=== PATIENT | female | born 1990 | race Caucasian/White ===

== ENCOUNTER 2018-06-06 16:57 | Emergency (ER) | payer OTHER ==
[~2018-06-06] VITALS: Ht 154.9 cm; Wt 60.1 kg
[~2018-06-06 16:57] MED LIST: ADDERALL10 MG PO; ADDERALL15 MG PO; AMBIEN5 MG PO; BENTYL20 MG PO; DEPO PROVERA; IBUPROFEN800 MG PO; NAPROXEN500 MG PO; ORTHO CYCLEN1 TABLET PO; ORTHO TRI-CYCL1 EACH PO; PEN-VEE K,VEET500 MG PO; PERCOCET 5/31 TABLET PO; ULTRAM50 MG PO; ZANTAC150 MG PO; ZOFRAN ODT8 MG PO
[2018-06-06 17:56] LABS: APPEARANCE CLOUDY ((CLEAR)); BILIRUBIN NEGATIVE; BLOOD SMALL; COLOR YELLOW ((YELLOW)); GLUCOSE (STRIP) NEGATIVE; KETONES NEGATIVE; LEUKOCYTES LARGE; NITRITE NEGATIVE; PROTEIN (STRIP) 30; SPECIFIC GRAVITY 1.016 (1.000-1.030); UROBILINOGEN 0.2 MG/DL (0.2-1.0)
[2018-06-06 19:06] LABS: BACTERIA 1+ /HPF; EPITHELIAL CELLS 2+ /HPF; MUCUS 1+ /LPF; RED BLOOD CELLS RARE /HPF (0-5); WHITE BLOOD CELLS 20-30 /HPF (0-5)
[2018-06-06] MEDS ORDERED: KEFLEX500 MG PO (19:17)
[2018-06-06 19:27] VITALS: BP 109/73
[2018-06-07 08:08] LABS: SOURCE SWAB
== END 2018-06-06 19:27 | disposition home or self-care (01) ==
LOC: RME 16:57 → EME 16:57 → RME 19:27
PROVIDERS: Physician Assistant
DX: N39.0 Urinary tract infection, site not specified (principal); A64 Unspecified sexually transmitted disease; F17.200 Nicotine dependence, unspecified, uncomplicated
CPT/HCPCS: 81003; 81025; 87210; 87491; 87591; 99281; 99284; J0696